=== PATIENT | male | born 1955 | race Caucasian/White ===

== ENCOUNTER 2016-11-24 13:57 | Emergency (ER) | payer BC ==
--- NOTE | 2016-11-24 15:20 | RADIOLOGY REPORT (SQ) ---
EXAM DESCRIPTION: KNEE RIGHT 3 VIEWS COMPLETED DATE/TIME: 11/24/2016 3:12 pm REASON FOR STUDY: knee pain COMPARISON: None. NUMBER OF VIEWS: Three views. TECHNIQUE: AP, lateral, and sunrise patella radiographic images acquired of the right knee. LIMITATIONS: None. FINDINGS: MINERALIZATION: Normal. BONES: No acute fracture or dislocation. No worrisome bone lesions. JOINT: No effusion. SOFT TISSUES: No soft tissue swelling. No radio-opaque foreign body. OTHER: No other significant finding. IMPRESSION: NEGATIVE STUDY OF THE RIGHT KNEE. NO RADIOGRAPHIC EVIDENCE OF ACUTE INJURY. TECHNICAL DOCUMENTATION: JOB ID: [id number] [employer]- All Rights Reserved
[2016-11-24] MEDS ORDERED: HYDROCODONE/ACETAMINOPHEN 5-325 MG 6 TAB/DSPK PO PRN (15:38)
--- NOTE | 2016-11-24 15:38 | ER Document Report ---
ED Extremity Problem, Lower - General Chief Complaint: Knee Pain Stated Complaint: RIGHT KNEE INJURY Time Seen by Provider: 11/24/16 14:30 TRAVEL OUTSIDE OF THE [place] IN LAST 30 DAYS: No - HPI Patient complains to provider of: Injury Location: Knee - right Occurred: Just prior to arrival Where: Sports - golf- hurt his knee while golfing Onset/Duration: Sudden Quality of pain: Achy, Throbbing Context: Twisted Recent injury: Yes Associated symptoms: Painful ambulation, Unable to bear weight Exacerbated by: Movement, Walking Relieved by: Ice, Rest - Related Data Allergies/Adverse Reactions: No Known Allergies Allergy (Verified 11/24/16 14:04) Past Medical History - Social History Smoking Status: Current Some Day Smoker Chew tobacco use (# tins/day): No Frequency of alcohol use: Occasional Drug Abuse: None Family History: Reviewed & Not Pertinent - Past Medical History Cardiac Medical History: Reports: Hx Hypercholesterolemia, Hx Hypertension Denies: Hx Coronary Artery Disease, Hx Heart Attack Pulmonary Medical History: Denies: Hx Asthma, Hx Bronchitis, Hx COPD, Hx Pneumonia Neurological Medical History: Denies: Hx Cerebrovascular Accident, Hx Seizures Endocrine Medical History: Reports: Hx Diabetes Mellitus Type 2 Renal/ Medical History: Denies: Hx Peritoneal Dialysis Musculoskeltal Medical History: Denies Hx Arthritis - Immunizations Hx Diphtheria, Pertussis, Tetanus Vaccination: Yes Physical Exam - Vital signs Vitals: Temp Pulse Resp BP Pulse Ox 98.8 F 75 16 115/65 100 11/24/16 14:03 11/24/16 14:03 11/24/16 14:03 11/24/16 14:03 11/24/16 14:03 - General General appearance: Appears well, Alert In distress: None - Cardiovascular Pulses: Normal: Femoral, Popliteal, Dorsalis pedis Normal capillary refill: Yes - Extremities Hip: Normal Thigh: Normal Knee: Nontender. No: Deformity, Dislocation, Drawer's test instability, Joint effusion, Laxity with valgus stress, Laxity with varus stress, Pain with ROM, Unable to bear weight Calf: Normal Ankle: Normal Foot: Normal - Neurological Motor strength normal: LUE, RUE, LLE, RLE Sensory: Normal - Skin Skin Temperature: Warm Skin Moisture: Dry Skin Color: Normal Skin Turgor: Elastic Course - Re-evaluation Re-evalutation: 11/24/16 20:56 Is a 61-year-old male who is hemodynamic stable, no distress afebrile. No evidence of fracture dislocation, joint effusion noted on x-ray. Patient with possible internal knee injury versus strain. Patient to be on crutches, follow- up with primary care for possible referral to orthopedics. Patient is agreeable with plan. - Vital Signs Vital signs: Temp Pulse Resp BP Pulse Ox 98 F 77 16 133/77 H 97 11/24/16 16:00 11/24/16 16:00 11/24/16 16:00 11/24/16 16:00 11/24/16 16:00 - Diagnostic Test Radiology reviewed: Image reviewed, Reports reviewed Discharge - Discharge Clinical Impression: Knee pain, acute Qualifiers: Laterality: right Qualified Code(s): M25.561 - Pain in right knee Condition: Good Disposition: HOME, SELF-CARE Instructions: Use of Crutches ([facility]), Ice & Elevation ([facility]), Suspected Internal Knee Injury ([facility]), Oral Narcotic Medication ([facility]), Sprained Knee ([facility]) Additional Instructions: Please follow-up with your primary care physician in approximately 7-14 days for reevaluation and possible referral to orthopedics. Referrals: ORVILLE KERNS MD [ACTIVE STAFF] - Follow up as needed
[2016-11-24 16:05] VITALS: BP 133/77
== END 2016-11-24 16:00 | disposition home or self-care (01) ==
LOC: ER 13:57
DX: M25.561 Pain in right knee (principal); F17.200 Nicotine dependence, unspecified, uncomplicated
CPT/HCPCS: 99283

== ENCOUNTER → 2017-06-10 | Outpatient (CLI) | payer BC ==
--- NOTE | 2017-06-10 15:53 | RADIOLOGY REPORT (SQ) ---
EXAM DESCRIPTION: MRI RT LOWER JOINT WITHOUT COMPLETED DATE/TIME: 06/10/2017 2:52 pm REASON FOR STUDY: BUCKET HANDLE TEAR OF MEDIAL MENISCUS, CURRNET INJURY, RIGHT KNEE S83.211A BUCKET -HNDL TEAR OF MEDIAL MENSC, CRNT INJURY, R KN COMPARISON: None. TECHNIQUE: Rightknee images acquired and stored on PACS. Multiplanar images include fat sensitive s equences as T1, water sensitive sequences as FST2 or STIR, cartilage sensitive sequences as FSPD, and gradient echo sequences. LIMITATIONS: None. FINDINGS: JOINT AND BURSAE: Joint effusion. BONE CORTEX AND MARROW: No alteration of signal to suggest marrow replacement. No worrisome bone lesi ons. No occult fracture. ACL: Intact. No degeneration or ganglion cyst. PCL: Intact. MCL: Intact. No periligamentous edema or fluid. LCL: Intact. No periligamentous edema or fluid. MEDIAL MENISCUS: Attenuated. Signal abnormality consistent with a bucket-handle tea with some menisc al tissue in the notch. LATERAL MENISCUS: Similar signal alteration with meniscal tissue flipped anteriorly. MEDIAL COMPARTMENT: Cartilage preserved. No bone bruises or reactive marrow edema. No osteophytes. LATERAL COMPARTMENT: Cartilage preserved. No bone bruises or reactive marrow edema. No osteophytes. PATELLA: No chondromalacia. No subchondral cysts. Medial and lateral retinacula intact. EXTENSOR MECHANISM: Intact. Quadriceps and patella tendons normal. SOFT TISSUES: Adjacent muscles and subcutaneous tissues normal. Normal flow void in popliteal artery and vein. OTHER: No other significant finding. IMPRESSION: Bucket-handle tears of the medial and lateral menisci. TECHNICAL DOCUMENTATION: JOB ID: [id number] [employer]- All Rights Reserved
== END ==
LOC: RAD 13:50
PROVIDERS: ATTEND Orthopaedic Surgery
DX: S83.211A Bucket-handle tear of medial meniscus, current injury, right knee, initial encounter (principal); X58.XXXA Exposure to other specified factors, initial encounter

== ENCOUNTER 2017-06-26 08:01 | Day surgery (SDC) | payer BC ==
--- NOTE | 2017-06-19 10:19 | RADIOLOGY REPORT (SQ) ---
EXAM DESCRIPTION: CHEST PA/LATERAL COMPLETED DATE/TIME: 06/19/2017 10:06 am REASON FOR STUDY: PRE-OP COMPARISON: No prior chest films EXAM PARAMETERS: NUMBER OF VIEWS: two views TECHNIQUE: Digital Frontal and Lateral radiographic views of the chest acquired. RADIATION DOSE: NA LIMITATIONS: none FINDINGS: LUNGS AND PLEURA: No opacities, masses or pneumothorax. No pleural effusion. MEDIASTINUM AND HILAR STRUCTURES: No masses or contour abnormalities. HEART AND VASCULAR STRUCTURES: Heart normal size. No evidence for failure. BONES: No acute findings. HARDWARE: None in the chest. OTHER: No other significant finding. IMPRESSION: NO SIGNIFICANT RADIOGRAPHIC FINDING IN THE CHEST. TECHNICAL DOCUMENTATION: JOB ID: [id number] [employer]- All Rights Reserved
[2017-06-19 10:22] LABS: ABSOLUTE EOSINOPHILS # (AUTO) 0.1 10^3/uL (0.0-0.6); ABSOLUTE LYMPHOCYTES (AUTO) 1.1 10^3/uL (0.5-4.7); ABSOLUTE MONOCYTES (AUTO) 0.4 10^3/uL (0.1-1.4); ABSOLUTE NEUT (AUTO) 2.2 10^3/uL (1.7-8.2); BASOPHILS % (AUTO) 0.5 % (0-2); EOSINOPHILS % (AUTO) 1.7 % (0-6); HEMATOCRIT 44.1 % (37.9-51.0); HEMOGLOBIN 15.1 g/dL (13.5-17.0); LYMPHOCYTES % (AUTO) 28.3 % (13-45); MEAN CORPUSCULAR HEMOGLOBIN 31.6 pg (27.0-33.4); MEAN CORPUSCULAR HGB CONC 34.2 g/dL (32.0-36.0); MEAN CORPUSCULAR VOLUME 93 fl (80-97); MONOCYTES % (AUTO) 11.5 % (3-13); PLATELET COUNT 193 10^3/uL (150-450); RED BLOOD COUNT 4.77 10^6/uL (4.35-5.55); RED CELL DISTRIBUTION WIDTH 13.4 % (11.5-14.0); TOTAL CELLS COUNTED % (AUTO) 100 %; WHITE BLOOD COUNT 3.8 10^3/uL (4.0-10.5)
[2017-06-19 10:33] LABS: APPEARANCE,URINE CLEAR; BILIRUBIN,URINE NEGATIVE (NEGATIVE); COLOR,URINE STRAW; GLUCOSE, URINE NEGATIVE (NEGATIVE); KETONES,URINE NEGATIVE (NEGATIVE); LEUKOCYTE ESTERASE,URINE NEGATIVE (NEGATIVE); NITRITE,URINE NEGATIVE (NEGATIVE); PROTEIN,URINE NEGATIVE (NEGATIVE); URINE SPECIFIC GRAVITY 1.002; UROBILINOGEN,URINE NEGATIVE mg/dL (<2.0)
[2017-06-19 10:48] LABS: ANION GAP 11 (5-19); BLOOD UREA NITROGEN 13 mg/dL (7-20); CALCIUM 10.6 mg/dL (8.4-10.2); CARBON DIOXIDE 27 mmol/L (22-30); CHLORIDE 104 mmol/L (98-107); GLUCOSE 97 mg/dL (75-110); POTASSIUM 4.6 mmol/L (3.6-5.0); SODIUM 142.1 mmol/L (137-145)
--- NOTE | 2017-06-19 22:38 | EKG REPORT ---
SEVERITY:- BORDERLINE ECG - SINUS RHYTHM BORDERLINE T ABNORMALITIES, INFERIOR LEADS : Confirmed by: Jona Kwan 19-Jun-2017 22:38:18
[~2017-06-26 08:01] MED LIST: BUPIVACAINE HCL 0.5 % INJ/PF 30 ML SDV ONE; CEFAZOLIN 2 GM/D5W RTU 2 GM/50 ML RTUPB IV PRN; LACTATED RINGERS 1000 ML IV PRN; LIDOCAINE 0.5% INJ-PF (5 MG/ML) 50 ML SDV SUBCUT PRN
[2017-06-26] MEDS ORDERED: MIDAZOLAM 2 MG/2 ML INJ ONE (10:33)
[2017-06-26] MEDS ORDERED: ONDANSETRON HCL INJ/PF 4 MG/2 ML SDV ONE (10:33)
[2017-06-26] MEDS ORDERED: ACETAMINOPHEN 100 ML IV ONE (10:33)
[2017-06-26] MEDS ORDERED: DEXAMETHASONE SOD PHOSPHATE INJ 4 MG/1 ML VIAL ONE (10:33)
[2017-06-26] MEDS ORDERED: PROPOFOL INJ 200 MG/20 ML VIAL IV ONE (10:33)
[2017-06-26] MEDS ORDERED: HYDROMORPHONE HCL INJ/PF 2 MG/ML AMPULE ONE (10:34)
[2017-06-26] MEDS ORDERED: FENTANYL CITRATE INJ/PF 100 MCG/2 ML AMPUL IV PRN ×3 (11:12)
[2017-06-26] MEDS ORDERED: PROMETHAZINE HCL INJ 25 MG/1 ML VIAL IV PRN ×2 (11:12)
[2017-06-26] MEDS ORDERED: OXYCODONE-ACETAMINOPHEN 5-325 MG TABLET PO PRN ×4 (11:12→12:26)
[2017-06-26] MEDS ORDERED: DIPHENHYDRAMINE HCL 50 MG/ML VIAL IV PRN (11:12)
[2017-06-26] MEDS ORDERED: MORPHINE SULFATE 10 MG/ML INJ IV PRN (11:12)
[2017-06-26] MEDS ORDERED: MEPERIDINE HCL/PF INJ 25 MG/1 ML DISP.SYRIN IV PRN (11:12)
--- NOTE | 2017-06-26 12:12 | Operative Report ---
Operative Report DATE OF SURGERY: 06/26/17 PREOPERATIVE DIAGNOSIS: Right knee medial and lateral meniscus tears POSTOPERATIVE DIAGNOSIS: Same OPERATION: Right knee arthroscopy with partial medial and partial lateral meniscectomies SURGEON: LEVI PHAM ANESTHESIA: GA TISSUE REMOVED OR ALTERED: None COMPLICATIONS: None ESTIMATED BLOOD LOSS: 10 mL INTRAOPERATIVE FINDINGS: As above PROCEDURE: Patient was brought to the operating room and induced and intubated in supine position. A tourniquet was applied to the right lower extremity. Timeout was done identifying the right knee was the correct site. .25% plain Marcaine was injected into anticipated portal sites. The extremity was elevated and the tourniquet was inflated at 300 mmHg. 11 blade was used to establish the anterolateral portal. Scope was introduced. At this point I established my anteromedial portal. Capsule was distended with sterile saline solution and a diagnostic scope was done showing the patient had pristine patellofemoral compartment with no evidence of chondromalacia. I turned my attention to the medial compartment where I noted a complex tear of the medial meniscus. Patient had a radial tear as well as a longitudinal tear.I used the meniscal biter and 4.0mm shaver to resect majority of the posterior horn of the medial meniscus. Shaver smooth out the edges of the meniscus which gave a good stable construct. I this point redirected my camera to the notch and visualized the anterior cruciate ligament graft which was intact as well as the PCL which showed to be intact. I then placed the extremity in a [id number] and looked into the lateral compartment which showed both a horizontal degenerative tear on the peripheral aspect in the mid body and posterior aspect of the lateral meniscus.. Popliteal hiatus was intact. Articular cartilage also was pristine with no evidence of chondromalacia or wear. I proceeded to use a shaver and the biter to resect my lateral meniscus tear and to a stable construct. Pictures were taken showing the remaining meniscus on the medial lateral side. At this point the fluid of the knee was removed and I proceeded to close the 2 portal sites with 3-0 nylon. Tourniquet was let down. The portal sites were covered with Xeroform 4 x 4 dressing and ABD pad followed by a soft roll. I overwrapped it with an Raheem bandage. Drapes were cut and removed. Patient was successfully extubated and sent to PACU in stable condition.
--- NOTE | 2017-06-26 12:20 | Discharge Summary ---
Discharge Summary (SDC) - Discharge Final Diagnosis: Status post right knee arthroscopy with partial medial and lateral meniscectomies Date of Surgery: 06/26/17 Discharge Date: 06/26/17 Condition: Good Treatment or Instructions: Patient instructed to follow up in 10-14 days. Patient instructed to keep dressing dry clean and intact for 4 days and then allowed to remove. At that point patient can shower and apply Band-Aids as needed. Patient can weight-bear as tolerated and do range of motion exercises as tolerated. Crutches for support and safety. Can wean crutches once stable on his feet. Patient instructed to call the office if patient develops fevers chills redness and drainage from the surgical sites. Prescriptions: Oxycodone HCl/Acetaminophen [Percocet 5-325 mg Tablet] 1 - 2 tab PO ASDIR PRN # 60 tablet PRN Reason: Referrals: ALFONSO GOMES [Primary Care Provider] - Discharge Diet: As Tolerated Respiratory Treatments at Home: Deep Breathing/Coughing Discharge Activity: No Driving, Keep Legs Elevated, No Lifting/Push/Pulling, Slowly Increase Activity, Walk Frequently Adaptive Devices on Discharge: Axillary Crutches Report the Following to Your Physician Immediately: Shortness of Breath, Vomiting, Increase in Pain, Fever over 101 Degrees, Unusual Bleeding, Redness, Swelling, Warmth, Increased Soreness, Drainage-Yellow, Drainage-Quintero, Drainage- Green, Drainage-Foul Smelling
[2017-06-26] MEDS ORDERED: OXYCODONE-ACETAMINOPHEN 5-325 MG TABLET ONE (12:31)
[2017-06-26 15:03] VITALS: BP 110/70
== END 2017-06-26 13:35 | disposition home or self-care (01) ==
LOC: OROUT 08:01
PROVIDERS: ATTEND Orthopaedic Surgery
PROC: 0SBC4ZZ Excision of Right Knee Joint, Percutaneous Endoscopic Approach (ICD-10-PCS; 2017-06-26)
PROC: 0SBC4ZZ Excision of Right Knee Joint, Percutaneous Endoscopic Approach (ICD-10-PCS; principal; 2017-06-26 10:00)
DX: S83.211A Bucket-handle tear of medial meniscus, current injury, right knee, initial encounter (principal); S83.261A Peripheral tear of lateral meniscus, current injury, right knee, initial encounter; I10 Essential (primary) hypertension; Z79.899 Other long term (current) drug therapy; Z87.891 Personal history of nicotine dependence
CPT/HCPCS: 29880; 93005; 36415; 82962; 85025; 80048; 81001; 71046; 93010; J2250; J3490; J1100; J1170; J2405; J2704; J0690; J0131; 1400